=== PATIENT | male | born 1970 | race Caucasian/White ===

== ENCOUNTER → 2016-12-02 | Outpatient (CLI) | payer OTHER ==
[~2016-12-02] MED LIST: ADVIN10/60 INH; ALBU1AER9 INH; ATOR-24 PO; CLR10 PO; FLM4 PO; HYDR-3714 PO; MULT-513 PO; PRLSR20 PO
== END | disposition home or self-care (01) ==
LOC: C.LABMFLN 14:09
PROVIDERS: ATTEND Nurse Practitioner Family
DX: R39.9 Unspecified symptoms and signs involving the genitourinary system (principal)

== ENCOUNTER → 2016-12-04 | Outpatient (CLI) | payer OTHER ==
[2016-12-04 13:11] LABS: BLOOD UREA NITROGEN 16 mg/dl (7-18); BUN/CREATININE RATIO 13.6 (10-20)
== END | disposition home or self-care (01) ==
LOC: C.LABPVFM 08:32
PROVIDERS: ATTEND Urology
DX: N20.0 Calculus of kidney (principal); N40.1 Benign prostatic hyperplasia with lower urinary tract symptoms; N52.9 Male erectile dysfunction, unspecified

== ENCOUNTER → 2017-08-16 | Outpatient (CLI) | payer OTHER ==
--- NOTE | 2017-08-16 14:35 | DIAGNOSTIC IMAGING REPORT ---
RIGHT FOURTH TOE RADIOGRAPHS CLINICAL HISTORY: Right fourth toe fracture. COMPARISON: None FINDINGS: There is an oblique mildly displaced fracture of the proximal phalanx of the right fourth toe with associated soft tissue swelling. No additional fractures are identified within the right fourth toe. IMPRESSION: Acute oblique mildly displaced fracture of the proximal phalanx of right fourth toe. Electronically signed by: Thom Pereira M.D. 08/16/2017 2:34 PM Dictated Date/Time: 08/16/2017 2:32 PM
== END | disposition home or self-care (01) ==
LOC: C.RADPV 14:16
PROVIDERS: ATTEND Nurse Practitioner
DX: S92.511A Displaced fracture of proximal phalanx of right lesser toe(s), initial encounter for closed fracture (principal); X58.XXXA Exposure to other specified factors, initial encounter

== ENCOUNTER → 2017-08-25 | Day surgery (SDC) | payer OTHER ==
[2017-08-24 14:22] VITALS: BMI 40.0
[~2017-08-25] VITALS: Ht 180.3 cm; Wt 132.3 kg
[~2017-08-25] MED LIST changes: -ALBU1AER9 INH; +ALFU10TA30 PO; +FENTANYL CITRATE INJ 50 MCG/1 ML 2 ML VIAL ONE; -FLM4 PO; -HYDR-3714 PO; +LIDOCAINE HCL 2% 2 ML VIAL (20MG/ML) ONE; +MIDAZOLAM HCL 1 MG/ML 2ML VIAL ONE; +MONT1TAB3 PO; -MULT-513 PO; +MULTTAB58 PO; +PROPOFOL IV EMULSION 10 MG/ML 20 ML VIAL IV ONE; +SODIUM CHLORIDE 0.9% 500ML 500 ML IV ONE; +VNTHFA/IN INH
[2017-08-25 13:17] VITALS: Ht 180.3 cm; Wt 132.3 kg
[2017-08-25 13:36] VITALS: TEMP 36.4
--- NOTE | 2017-08-25 13:50 | Endo History and Physical ---
History & Physical Date of Service: Aug 25, 2017. Chief Complaint: screening father family history Referring Physician: DR. WEBB/HILARY AMADO History of Present Illness 46 yo CM who presents for colonoscopy secondary to family history of colon cancer (Father). Past Surgical History Hx Cardiac Surgery: No Hx Internal Defibrillator: No Hx Pacemaker: No Hx Abdominal Surgery: No Hx of Implantable Prosthesis: No Hx Post-Op Nausea and Vomiting: No Hx Cancer Surgery: No Hx Thoracic Surgery: No Hx Orthopedic: Yes (RT/LEFT KNEE ARTHROSCOPY, RT CTR) Hx Urinary Tract Surgery: No Family History None Social History Smoking Status: Never Smoker Hx Substance Use: No Hx Alcohol Use: Yes (RARELY) Allergies Coded Allergies: Sulfa Drugs (Verified Allergy, Mild, RASH, 08/25/17) Penicillins (Verified Allergy, Unknown, RASH, 08/25/17) Current Medications Reported Home Medications Medications Dose Route/Sig Max Daily Dose Days Date Category Singulair (Montelukast Sodium) 10 Mg Tab 1 Tab PO DAILY 90 08/25/17 Reported Ventolin Hfa (Albuterol) 200 Puffs/89114 Mcg Aers 2-4 Puffs INH Q6H PRN 08/24/17 Reported Advair Diskus 100/50 60 Dose (Fluticasone Prop/Salmeterol) 1 Ea Aerp 1 Puff INH BID PRN 08/24/17 Reported Multivitamin (Multiple Vitamin) 1 Tab Tab 1 Tab PO QAM 08/24/17 Reported Uroxatral (Alfuzosin HCl) 10 Mg Tab 10 Mg PO HS 08/24/17 Reported Claritin (Loratadine) 10 Mg Tab 10 Mg PO QAM 12/03/13 Reported Lipitor (Atorvastatin Calcium) 40 Mg Tab 40 Mg PO QAM 12/03/13 Reported Prilosec (Omeprazole) 20 Mg Capcr 20 Mg PO QAM 12/03/13 Reported Vital Signs Weight (Kilograms): 132.27 Height (Feet): 5 Height (Inches): 11 Date Time Temp Pulse Resp B/P (MAP) Pulse Ox O2 Delivery O2 Flow Rate FiO2 08/25/17 13:36 36.4 77 20 139/83 (101) 98 Room Air Physical Exam General Appearance: WD/WN, no apparent distress Respiratory/Chest: Auscultation: breath sounds normal Cardiovascular: Heart Auscultation: RRR Abdomen: Bowel Sounds: normal Inspection & Palpation: soft, non-distended, no tenderness, guarding & rebound Assessment and Plan Assessment: 46 yo CM who presents for colonoscopy secondary to family history of colon cancer (Father). Plan: Proceed with colonoscopy.
--- NOTE | 2017-08-25 14:38 | Discharge Instructions ---
Endoscopy Patient Instructions Date / Procedure(s) Performed Aug 25, 2017. Colonoscopy Allergy Information Coded Allergies: Sulfa Drugs (Verified Allergy, Mild, RASH, 08/25/17) Penicillins (Verified Allergy, Unknown, RASH, 08/25/17) Discharge Date / Findings Aug 25, 2017. Rectal polyps Internal hemorrhoids Medication Instructions OK to resume all medications today as prescribed Reported Home Medications Medications Dose Route/Sig Max Daily Dose Days Date Category Singulair (Montelukast Sodium) 10 Mg Tab 1 Tab PO DAILY 90 08/25/17 Reported Ventolin Hfa (Albuterol) 200 Puffs/65460 Mcg Aers 2-4 Puffs INH Q6H PRN 08/24/17 Reported Advair Diskus 100/50 60 Dose (Fluticasone Prop/Salmeterol) 1 Ea Aerp 1 Puff INH BID PRN 08/24/17 Reported Multivitamin (Multiple Vitamin) 1 Tab Tab 1 Tab PO QAM 08/24/17 Reported Uroxatral (Alfuzosin HCl) 10 Mg Tab 10 Mg PO HS 08/24/17 Reported Claritin (Loratadine) 10 Mg Tab 10 Mg PO QAM 12/03/13 Reported Lipitor (Atorvastatin Calcium) 40 Mg Tab 40 Mg PO QAM 12/03/13 Reported Prilosec (Omeprazole) 20 Mg Capcr 20 Mg PO QAM 12/03/13 Reported Provider Instructions Activity Restrictions - No exercising or heavy lifting for 24 hours. - Do not drink alcohol the day of the procedure. - Do not drive a car or operate machinery until the day after the procedure. - Do not make any important decisions or sign important papers in 24 hours after the procedure. Following Day: - Return to full activity which may include returning to work/school. Diet Start your diet with liquids and light foods (jello, soup, juice, toast). Then eat your usual diet if not nauseated. Treatment For Common After Affects For mild abdominal pain, bloating, or excessive gas: - Rest - Eat lightly - Lie on right side Follow-Up Information Follow-up with DR. WEBB/HILARY AMADO as scheduled Anesthesia Information What You Should Know You have had a procedure that required some medicine to reduce anxiety and discomfort. This treatment is called moderate sedation. After receiving the treatment, you may be sleepy, but you will be able to breathe on your own. The effects of the treatment may last for several hours. Follow these instructions along with Activity/Diet recommendations noted above: * Do NOT do anything where dizziness or clumsiness would be dangerous. * Rest quietly at home today, then you can be up and about tomorrow. * Have a responsible person stay with you the rest of today. * You may have had an I.V. today. If so, you may take the dressing off later today. Recommendations Call your doctor if: * Trouble breathing * Continuous vomiting for more than 24 hours * Temperature above 101 degrees * Severe abdominal pain or bloating * Pain not relieved by pain medicine ordered * There is increased drainage or redness from any incision * A large amount of rectal bleeding greater than 2-3 tablespoons. (If you had a polyp/s removed or have hemorrhoids, a small amount of blood - from the rectum is to be expected.) * You have any unanswered questions or concerns. IN THE EVENT OF A SERIOUS EMERGENCY, GO TO THE NEAREST EMERGENCY ROOM Your discharge instructions were prepared by provider Govind Diez. Patient Instructions Signature Page Jay Wilkins Patient (or Guardian) Signature/Date: I have read and understand the instructions given to me by my caregivers. Caregiver/RN/Doctor Signature/Date: The above-named patient and/or guardian has received patient instructions on this date. + Original Patient Signature Page (only) stays with chart. Please make copy for patient.
--- NOTE | 2017-08-25 14:38 | GI REPORT ---
Procedure Date: 08/25/2017 1:57 PM Procedure: Colonoscopy Indications: Family history of colon cancer in a first-degree relative Medicines: Monitored Anesthesia Care Complications: No immediate complications. Estimated Blood Loss: Estimated blood loss: none. Procedure: Pre-Anesthesia Assessment: - Prior to the procedure, a History and Physical was performed, and patient medications and allergies were reviewed. The patient's tolerance of previous anesthesia was also reviewed. The risks and benefits of the procedure and the sedation options and risks were discussed with the patient. All questions were answered, and informed consent was obtained. Prior Anticoagulants: The patient has taken no previous anticoagulant or antiplatelet agents. ASA Grade Assessment: II - A patient with mild systemic disease. After reviewing the risks and benefits, the patient was deemed in satisfactory condition to undergo the procedure. After I obtained informed consent, the scope was passed under direct vision. Throughout the procedure, the patient's blood pressure, pulse, and oxygen saturations were monitored continuously. The scope was introduced through the anus and advanced to the terminal ileum. The colonoscopy was performed without difficulty. The patient tolerated the procedure well. The quality of the bowel preparation was good. The terminal ileum, ileocecal valve, appendiceal orifice, and rectum were photographed. Findings: Two sessile polyps were found in the rectum. The polyps were 3 to 4 mm in size. These polyps were removed with a cold snare. Resection and retrieval were complete. Non-bleeding internal hemorrhoids were found during retroflexion. The hemorrhoids were small. Impression: - Two 3 to 4 mm polyps in the rectum, removed with a cold snare. Resected and retrieved. - Non-bleeding internal hemorrhoids. Recommendation: - Resume previous diet. - Continue present medications. - Repeat colonoscopy for surveillance based on pathology results. - Return to primary care physician as previously scheduled. Govind Diez, 08/25/2017 2:37:57 PM This report has been signed electronically. Note Initiated On: 08/25/2017 1:57 PM I attest to the content of the Intraoperative Record and orders documented therein, exceptions below
--- NOTE | 2017-08-25 14:58 | Anesthesiology Progress Note ---
Anesthesia Post Op Note Date & Time Aug 25, 2017 at 14:57 Vital Signs Pain Intensity: 0 Vital Signs Past 12 Hours Date Time Temp Pulse Resp B/P (MAP) Pulse Ox O2 Delivery O2 Flow Rate FiO2 08/25/17 14:47 77 20 119/85 (96) 95 Room Air 08/25/17 14:33 82 20 157/90 (112) 99 Room Air 08/25/17 13:36 36.4 77 20 139/83 (101) 98 Room Air Notes Mental Status: alert / awake / arousable, participated in evaluation Pt Amnestic to Procedure: Yes Nausea / Vomiting: adequately controlled Pain: adequately controlled Airway Patency, RR, SpO2: stable & adequate BP & HR: stable & adequate Hydration State: stable & adequate Anesthetic Complications: no major complications apparent
[2017-08-25 15:02] VITALS: BP 125/90; PULSE 71; O2SAT 95
== END | disposition home or self-care (01) ==
LOC: C.GI 13:06
PROVIDERS: ATTEND Internal Medicine
DX: Z12.11 Encounter for screening for malignant neoplasm of colon (principal); K62.1 Rectal polyp; K64.8 Other hemorrhoids; Z80.0 Family history of malignant neoplasm of digestive organs; J45.909 Unspecified asthma, uncomplicated; Z88.0 Allergy status to penicillin; Z88.2 Allergy status to sulfonamides; Z98.890 Other specified postprocedural states; Z79.899 Other long term (current) drug therapy; E66.9 Obesity, unspecified; Z68.41 Body mass index [BMI] 40.0-44.9, adult

== ENCOUNTER → 2017-12-20 | Outpatient (CLI) | payer OTHER ==
[~2017-12-20] MED LIST changes: +ALFU10TA2 PO; -ALFU10TA30 PO; -FENTANYL CITRATE INJ 50 MCG/1 ML 2 ML VIAL ONE; -LIDOCAINE HCL 2% 2 ML VIAL (20MG/ML) ONE; -MIDAZOLAM HCL 1 MG/ML 2ML VIAL ONE; -PROPOFOL IV EMULSION 10 MG/ML 20 ML VIAL IV ONE; -SODIUM CHLORIDE 0.9% 500ML 500 ML IV ONE
[2017-12-20 17:31] LABS: BLOOD UREA NITROGEN 12 mg/dl (7-18); CREATININE 1.19 mg/dl (0.60-1.40)
== END | disposition home or self-care (01) ==
LOC: C.LABPVFM 13:37
PROVIDERS: ATTEND Urology
DX: N40.1 Benign prostatic hyperplasia with lower urinary tract symptoms (principal); N52.9 Male erectile dysfunction, unspecified; R39.9 Unspecified symptoms and signs involving the genitourinary system

== ENCOUNTER → 2018-06-14 | Outpatient (CLI) | payer OTHER | END | disposition home or self-care (01) | LOC: C.LABSPEC 10:32 | PROVIDERS: ATTEND Urology | DX: N40.1 Benign prostatic hyperplasia with lower urinary tract symptoms (principal) ==

== ENCOUNTER 2018-07-06 12:51 | Day surgery (SDC) | payer OTHER ==
[2018-06-12 15:54] VITALS: BMI 39.0
--- NOTE | 2018-06-14 09:06 | PAT Medication Instructions ---
Service Date Jun 14, 2018. Current Home Medication List Albuterol Hfa (Ventolin Hfa), 2-4 PUFFS INH Q6H PRN for Shortness of Breath Alfuzosin Hcl (Uroxatral), 10 MG PO HS Atorvastatin (Lipitor), 40 MG PO QAM Fluticasone Prop/Salmeterol (Advair Diskus 100/50 60 Dose), 1 PUFF INH BID PRN for Shortness of Breath Loratadine (Claritin), 10 MG PO QAM Montelukast Sodium (Singulair), 1 TAB PO HS Multiple Vitamin (Multivitamin), 1 TAB PO QAM Omeprazole (Prilosec), 20 MG PO QAM Medication Instructions For Your Scheduled Surgery - Hold the following medications the morning of surgery: Loratadine (Claritin), 10 MG PO QAM Multiple Vitamin (Multivitamin), 1 TAB PO QAM - Take the following medications the morning of surgery with a sip of water: Omeprazole (Prilosec), 20 MG PO QAM Fluticasone Prop/Salmeterol (Advair Diskus 100/50 60 Dose), 1 PUFF INH BID PRN for Shortness of Breath (if needed) Atorvastatin (Lipitor), 40 MG PO QAM Albuterol Hfa (Ventolin Hfa), 2-4 PUFFS INH Q6H PRN for Shortness of Breath (if needed) - Take the following medications as scheduled the night before surgery: Montelukast Sodium (Singulair), 1 TAB PO HS Fluticasone Prop/Salmeterol (Advair Diskus 100/50 60 Dose), 1 PUFF INH BID PRN for Shortness of Breath (if needed) Albuterol Hfa (Ventolin Hfa), 2-4 PUFFS INH Q6H PRN for Shortness of Breath (if needed) Alfuzosin Hcl (Uroxatral), 10 MG PO HS If you have any questions please call us at [phone] or [phone] or [phone]
[2018-06-14 13:41] VITALS: BMI 41.0
--- NOTE | 2018-06-14 14:41 | DIAGNOSTIC IMAGING REPORT ---
CHEST 2 VIEWS ROUTINE CLINICAL HISTORY: PAT dyspnea COMPARISON STUDY: 12/07/2013 FINDINGS: The bones soft tissues and hemidiaphragms are normal. The cardiomediastinal silhouette is normal. The lungs are clear. The pulmonary vasculature is normal. IMPRESSION: Negative chest. The above report was generated using voice recognition software. It may contain grammatical, syntax or spelling errors. Electronically signed by: Jeancarlos Hardwick M.D. 06/14/2018 2:39 PM Dictated Date/Time: 06/14/2018 2:39 PM
[2018-06-14 14:44] LABS: BASO % 0.5 %; BASO ABS # 0.03 K/uL (0-0.2); EOS % 3.2 %; HEMATOCRIT 38.6 % (42-52); HEMOGLOBIN 12.1 g/dL (14.0-18.0); IG# 0.01 K/uL (0.00-0.02); LYMPH % 36.8 %; LYMPH ABS # 2.29 K/uL (1.2-3.4); MEAN CELL VOLUME 73.5 fL (80-100); MEAN CORPUSCULAR HGB CONC 31.3 g/dl (32-36); MEAN PLATELET VOLUME 8.6 fL (7.4-10.4); MONO % 11.7 %; MONO ABS # 0.73 K/uL (0.11-0.59); NEUT % 47.6 %; NEUT ABS # 2.97 K/uL (1.4-6.5); PLATELET COUNT 344 K/uL (130-400); RED CELL DISTRIBUTION WIDTH SD 45.7 fL (36.4-46.3); WHITE BLOOD COUNT 6.23 K/uL (4.8-10.8)
[2018-06-14 14:57] LABS: CALCIUM 8.7 mg/dl (8.5-10.1); CREATININE 1.08 mg/dl (0.60-1.40); POTASSIUM 3.7 mmol/L (3.5-5.1)
[~2018-07-06] VITALS: Ht 180.3 cm; Wt 133.9 kg
[~2018-07-06 12:51] MED LIST changes: +CIPROFLOXACIN / D5W 400 MG IV SCH; +LACTATED RINGER'S 1000ML 1,000 ML IV SCH; +LACTATED RINGER'S 1000ML 500 ML IV SCH
--- NOTE | 2018-07-06 13:07 | History & Physical Bridge Note ---
H&P Re-Evaluation Bridge Note: I have examined the patient, reviewed the History & Physical and in the interval since the performance of the History & Physical I have noted the following changes of clinical significance: No changes noted
[2018-07-06] MEDS ORDERED: LIDOCAINE HCL 2% 2 ML VIAL (20MG/ML) ONE (13:08)
[2018-07-06] MEDS ORDERED: PROPOFOL IV EMULSION 10 MG/ML 20 ML VIAL ONE ×2 (13:08→14:06)
[2018-07-06] MEDS ORDERED: FENTANYL CITRATE INJ 50 MCG/1 ML 2 ML VIAL ONE (13:08)
[2018-07-06] MEDS ORDERED: MIDAZOLAM HCL 1 MG/ML 2ML VIAL ONE (13:08)
[2018-07-06 13:14] VITALS: BP 154/92; PULSE 75; TEMP 36.6; O2SAT 96; Ht 180.3 cm; Wt 133.9 kg
[2018-07-06] MEDS ORDERED: OXYC-57 PO (13:23)
[2018-07-06] MEDS ORDERED: CIPR-255 PO (13:23)
[2018-07-06] MEDS ORDERED: PHEN-775 PO (13:23)
--- NOTE | 2018-07-06 13:25 | Discharge Instructions ---
Discharge Instructions Date of Service Jul 06, 2018. Admission Reason for Admission: Benign Prostatic Hyperplasia Discharge Discharge Diagnosis / Problem: BPH s/p cystoscopy, Urolift Discharge Goals Goal(s): Improve function, Improve disease control, Therapeutic intervention Activity Recommendations Activity Limitations: as noted below Lifting Limitations: no more than 25 pounds, gradually increase as tolerated Exercise/Sports Limitations: rest today, gradually increase as tolerated May Resume Sexual Activity: after follow-up appointment Shower/Bathe: no limitations Driving or Machine Use: resume 1 day after discharge . Instructions / Follow-Up Instructions / Follow-Up Follow-up in office as scheduled for postoperative check. Current Hospital Diet Patient's current hospital diet: Discharge Diet Recommended Diet: Regular Diet (good fluid intake) Procedures Procedures Performed: Cystoscopy, Urolift implant x 4 Pending Studies Studies pending at discharge: no Medical Emergencies . Who to Call and When: Medical Emergencies: If at any time you feel your situation is an emergency, please call 911 immediately. . Non-Emergent Contact Non-Emergency issues call your: Urologist Call Non-Emergent contact if: you have a fever, temperature is above 101, your pain is not controlled, your pain is worsening, your pain is unusual for you, your pain is concerning you, you have any medication questions . . "Provider Documentation" section prepared by Izaiah Duvall. . [place] Drug Monitoring Program Search Results: patient reviewed within database, no issues identified
[2018-07-06] MEDS ORDERED: ONDANSETRON INJ 2 MG/ML 2 ML VIAL IV PRN (13:30)
[2018-07-06] MEDS ORDERED: ATROPINE SULFATE 0.1 MG/ML 5ML SYR IV PRN (13:30)
[2018-07-06] MEDS ORDERED: EpHEDrine SULFATE INJ 50 MG/ML AMP IV PRN (13:30)
[2018-07-06] MEDS ORDERED: FENTANYL CITRATE INJ 50 MCG/1 ML 2 ML VIAL IV PRN (13:30)
--- NOTE | 2018-07-06 14:08 | [facility] Operative Report ---
Operative Report Operative Date Jul 06, 2018. Pre-Operative Diagnosis Benign localized hyperplasia of prostate with urinary obstruction Post-Operative Diagnosis same Procedure(s) Performed Cystoscopy, Urolift x [address] Izaiah Duvall [employer] Surgeon(s) none Estimated Blood Loss 0mL Findings Open prostatic fossa after implantation of 4 Urolift Specimens None Drains None Anesthesia Type MAC Complication(s) none Disposition no Recovery Room / PACU Indications 47-year-old male with a history of refractory voiding symptoms here today for a Urolift implantation for relief of his symptoms. Please see H&P and office cystoscopy note for further details. Intravenous ciprofloxacin provided for antibiotic coverage and SCDs used for DVT prophylaxis. Description of Procedure Patient was properly identified and brought into the operative suite after identification of appropriate consent in the chart. Monitored anesthesia with sedation was initiated and patient was prepped and draped in the standard fashion for this procedure that is in a dorsolithotomy position. Urolift cystoscope was inserted into the bladder using a visual obturator under direct visualization. This demonstrated obstructive lateral lobe hypertrophy without an intravesical component to the prostate. Bladder was surveyed demonstrating no intravesical lesions, papillary masses or mucosal changes. Urolift implants were placed bilaterally at the level of the bladder neck and then bilaterally at the distal prostate proximal to the verumontanum. Visual obturator was replaced in the patient's prostate was noted to be visually unobstructed with excellent opening of the prostatic urethra. Some mild hematuria at the level of the implants was appreciated without significant bleeding into the bladder. Bladder was drained and cystoscope was removed. Anesthesia was reversed the patient was transferred into the recovery room in stable condition. Follow-up instructions: Patient will be discharged home after void today. Prescription for ciprofloxacin, Percocet and Pyridium are provided for postoperative coverage. Outpatient appointment is confirmed. I attest to the content of the Intraoperative Record and any orders documented therein. Any exceptions are noted below.
[2018-07-06 14:15] VITALS: BP 153/92; PULSE 92; TEMP 36.7; O2SAT 95
[2018-07-06] MEDS ORDERED: OXYCODONE/ACETAMINOPHEN 5-325 TAB PO PRN ×2 (14:15)
[2018-07-06] MEDS ORDERED: PHENAZOPYRIDINE HCL 200 MG TAB PO PRN (14:15)
--- NOTE | 2018-07-06 14:38 | Anesthesiology Progress Note ---
Anesthesia Post Op Note Date & Time Jul 06, 2018 at 14:38 Vital Signs Pain Intensity: 0 Vital Signs Past 12 Hours Date Time Temp Pulse Resp B/P (MAP) Pulse Ox O2 Delivery O2 Flow Rate FiO2 07/06/18 14:15 36.7 92 18 153/92 95 Room Air 07/06/18 13:14 36.6 75 18 154/92 (112) 96 Room Air Notes Mental Status: alert / awake / arousable, participated in evaluation Pt Amnestic to Procedure: Yes Nausea / Vomiting: adequately controlled Pain: adequately controlled Airway Patency, RR, SpO2: stable & adequate BP & HR: stable & adequate Hydration State: stable & adequate Anesthetic Complications: no major complications apparent
[2018-07-06 14:45] VITALS: BP 141/88; PULSE 67; TEMP 36.1; O2SAT 98
== END 2018-07-06 15:20 | disposition home or self-care (01) ==
LOC: C.ACU 12:51
PROVIDERS: ATTEND Urology
DX: N40.1 Benign prostatic hyperplasia with lower urinary tract symptoms (principal); N13.8 Other obstructive and reflux uropathy; K21.9 Gastro-esophageal reflux disease without esophagitis; J45.909 Unspecified asthma, uncomplicated; E78.00 Pure hypercholesterolemia, unspecified; E78.5 Hyperlipidemia, unspecified; E66.01 Morbid (severe) obesity due to excess calories; Z68.41 Body mass index [BMI] 40.0-44.9, adult; Z88.2 Allergy status to sulfonamides; Z88.0 Allergy status to penicillin; Z87.891 Personal history of nicotine dependence